=== PATIENT | female | born 1975 | race Caucasian/White ===

== ENCOUNTER 2019-06-28 12:06 | Emergency (ER) | payer OTHER, SELFPAY ==
--- NOTE | ~2019-06-28 | XR_ITS ---
EXAMINATION: XR chest 2V DATE: 06/28/2019 13:46 INDICATION: Back pain. TECHNIQUE: Frontal and lateral views of the chest were obtained. COMPARISON: Left rib radiographs 11/08/2008 FINDINGS: The chest demonstrates clear lungs without pneumonia, pleural effusion, or pneumothorax. Th e heart size is normal. Pectus excavatum is noted. Surgical clips in the right upper quadrant are lik shahab from cholecystectomy. IMPRESSION: 1. No acute cardiopulmonary disease. Reviewed, dictated and finalized at location A. [facility]
[2019-06-28 12:36] VITALS: BP 143/96; PULSE 91; RESP 16; TEMP 37.2; O2SAT 98
--- NOTE | 2019-06-28 13:37 | ED.GENADULT ---
HPI - General Adult General Chief complaint: Back Pain/Injury Stated complaint: Back pain Time Seen by Provider: 06/28/19 13:29 Source: patient and RN notes reviewed Mode of arrival: ambulatory Limitations: no limitations History of Present Illness HPI narrative: 44-year-old female presents with complaints of mid back and LT anterior rib pain for 3 weeks. Ibuprofen with little to no relief. History of Pleurisy and MS. Denies cough. Denies chest congestion. Denies new injuries or falls. Denies radiating pain, numbness, or tingling. Denies fever or chills. No upper or lower extremity pain or weakness. No exacerbating factors. Denies nausea, vomiting, or abdominal pain. Denies problems with urinating or having a bowel movement, LBM this am, normal. No flank pain or hematuria or dysuria. Lynda denies being , tubal ligation. Some parts of this dictation were generated by voice recognition software and may contain typographical and/or grammatical inaccuracies. Related Data Home Medications Medication Instructions Recorded Confirmed ocrelizumab [Ocrevus] 600 mg IV [id number] 06/28/19 06/28/19 Allergies Allergy/AdvReac Type Severity Reaction Status Date / Time Penicillins Allergy Unknown Rash Verified 06/28/19 12:40 Sulfa (Sulfonamide Allergy Unknown Other Verified 06/28/19 12:40 Antibiotics) Review of Systems Review of Systems: Narrative: CONSTITUTIONAL: Denies fever, chills, sweats. EYES: Denies visual changes, redness, discharge. ENT: Denies rhinorrhea, congestion, sore throat, otalgia. CARDIOVASCULAR: Denies chest pain, palpitations, edema. RESPIRATORY: Denies dyspnea, wheezing, cough. GASTROINTESTINAL: Denies abdominal pain, nausea, vomiting, diarrhea. GENITOURINARY: Denies dysuria, hematuria, abnormal discharge. SKIN: Denies rash or itching. MUSCULOSKELETAL: Complains of mid back pain, LT anterior rib pain. Denies myalgia. NEUROLOGIC: Denies numbness or focal weakness. PSYCHIATRIC: Denies anxiety or depression. All systems reviewed & are unremarkable except as noted in HPI and below. [facility] Past Medical History Medical History (Updated 07/01/19 @ 23:04 by JONO Landry) History of PCOS Lipoma Removed from the back of neck Multiple sclerosis Pleurisy Strabismus Repaired X2 Umbilical hernia Repaired Surgical History Surgical History (Updated 07/01/19 @ 23:04 by JONO Landry) History of adenoidectomy History of cholecystectomy History of tonsillectomy History of tubal ligation Family History Family History Mother Family history of osteoporosis Family history of heart disease in male family member before age 55 Sibling Family history of migraine headaches Father Family history of elevated blood lipids Family history of coronary artery disease Family history of heart disease in male family member before age 55 Other Diabetes mellitus Family history of Alzheimer's disease Family history of alcoholism Family history of chronic obstructive pulmonary disease Family history of congestive heart failure Family history of glaucoma Family history of hearing loss Family history of primary malignant neoplasm of liver Family history of thyroid disease Social History Social History (Updated 06/28/19 @ 13:43 by JONO Landry) Smoking status: Former smoker Second hand tobacco smoke exposure: No Alcohol intake: current Alcohol use details: Occasional Substance use: never Living arrangements: with family Occupation/Education: occupation Gender identity (if verbalized by the patient): Female Comments At time of signature, agree with nurse past medical, surgical, social, and family history. There is no relevant family history pertinent to the presenting complaint. Exam Narrative: Exam Narrative: GENERAL: This is a well-nourished, well-developed patient, in
== END 2019-06-28 14:11 | disposition home or self-care (01) ==
PROVIDERS: Emergency Provider Nurse Practitioner Family; PCP Internal Medicine
DX: M54.6 Pain in thoracic spine (principal); Z87.891 Personal history of nicotine dependence; E28.2 Polycystic ovarian syndrome; G35 Multiple sclerosis
CPT/HCPCS: 71046; 99203; G0463